=== PATIENT | male | born 1970 | race Caucasian/White ===

== ENCOUNTER 2022-01-10 10:01 | Emergency (ER) | payer MEDICAID | END 2022-01-10 11:11 | disposition home or self-care (01) | LOC: JP.ED 10:01 | DX: E16.2 Hypoglycemia, unspecified (principal); R20.2 Paresthesia of skin; R51.9 Headache, unspecified; I10 Essential (primary) hypertension; Z79.899 Other long term (current) drug therapy | CPT/HCPCS: 99283 ==